=== PATIENT | male | born 1965 | race Caucasian/White ===

== ENCOUNTER 2016-12-25 12:22 | Inpatient (IN) | payer OTHER ==
[~2016-12-25] VITALS: Ht 167.6 cm; Wt 81.6 kg
[~2016-12-25 12:22] MED LIST: ASPIR 8181 MG PO; BREO ELLIPTA 11 EACH INH; CATAPRES 0.1MG0.1 MG PO; COREG 25MG TAB25 MG PO; LEVAQUIN500 MG PO; PLAVIX 75 MG TA75 MG PO; PREDNISONE 10 M10 MG PO; SPIRIVA18 MCG INH; ZESTRIL 40 MG T40 MG PO
[2016-12-25 13:44] LABS: HEMOGLOBIN 16.2 gm/dl (14.0-17.5); RED BLOOD COUNT 5.38 M/UL (4.20-5.50); WHITE BLOOD COUNT 9.3 K/UL (4.5-11.0)
[2016-12-25 13:52] LABS: BUN/CREATININE RATIO 11 (0-10)
[2016-12-25] MEDS ORDERED: TYLENOL 325MG325 MG PO (17:57)
[2016-12-25] MEDS ORDERED: NASAL SPRAY30 M2 (17:58)
[2016-12-25] MEDS ORDERED: IPRAT-ALBUT 0.5-3 ML INH (17:59)
[2016-12-25] MEDS ORDERED: NEURONTIN 300300 MG PO (18:00)
[2016-12-26 08:02] LABS: HEMOGLOBIN 16.4 gm/dl (14.0-17.5); RED BLOOD COUNT 5.17 M/UL (4.20-5.50); WHITE BLOOD COUNT 13.9 K/UL (4.5-11.0)
[2016-12-26 08:36] LABS: BUN/CREATININE RATIO 31 (0-10)
[2016-12-27 05:28] LABS: RED BLOOD COUNT 4.77 M/UL (4.20-5.50); WHITE BLOOD COUNT 14.7 K/UL (4.5-11.0)
[2016-12-27 05:32] LABS: HEMOGLOBIN 14.4 gm/dl (14.0-17.5)
[2016-12-27 05:52] LABS: BUN/CREATININE RATIO 34 (0-10)
[2016-12-27] MEDS ORDERED: LEVAQUIN500 MG PO (15:31)
[2016-12-27] MEDS ORDERED: OXYGEN INH (15:32)
[2016-12-27] MEDS ORDERED: HABITROL 7 MG PA1 EA TD (15:33)
[2016-12-27] MEDS ORDERED: MEDROL4 MG PO (15:35)
== END 2016-12-27 16:02 | disposition home or self-care (01) | DRG 189 ==
LOC: ER1 12:22 → PROG CARE 14:39 → ZEROF 14:39 → PROG CARE 19:39 → M/S 12-26 18:21
PROVIDERS: Emergency Medicine; ADMIT Family Medicine
PROC: 5A09357 Assistance with Respiratory Ventilation, Less than 24 Consecutive Hours, Continuous Positive Airway Pressure (ICD-10-PCS; principal; 2016-12-25)
DX: J96.22 Acute and chronic respiratory failure with hypercapnia (principal); J44.0 Chronic obstructive pulmonary disease with (acute) lower respiratory infection; J44.1 Chronic obstructive pulmonary disease with (acute) exacerbation; J20.9 Acute bronchitis, unspecified; J96.21 Acute and chronic respiratory failure with hypoxia; I10 Essential (primary) hypertension; G89.29 Other chronic pain; M54.5 Low back pain; F17.210 Nicotine dependence, cigarettes, uncomplicated; K21.9 Gastro-esophageal reflux disease without esophagitis; R74.0 Nonspecific elevation of levels of transaminase and lactic acid dehydrogenase [LDH]; J30.9 Allergic rhinitis, unspecified; G47.00 Insomnia, unspecified; Z86.73 Personal history of transient ischemic attack (TIA), and cerebral infarction without residual deficits; Z79.02 Long term (current) use of antithrombotics/antiplatelets; Z79.82 Long term (current) use of aspirin; Z79.1 Long term (current) use of non-steroidal anti-inflammatories (NSAID); Z99.81 Dependence on supplemental oxygen; Z79.51 Long term (current) use of inhaled steroids; Z79.52 Long term (current) use of systemic steroids; Z79.899 Other long term (current) drug therapy; Z88.5 Allergy status to narcotic agent; Z91.041 Radiographic dye allergy status; Z90.49 Acquired absence of other specified parts of digestive tract; Z98.890 Other specified postprocedural states; Z80.0 Family history of malignant neoplasm of digestive organs; Z82.49 Family history of ischemic heart disease and other diseases of the circulatory system
CPT/HCPCS: 36415; 36600; 71010; 71020; 80053; 80074; 80307; 81001; 82550; 82553; 82803; 83880; 84484; 85025; 87040; 87086; 93005; 94640; 94660; 96374; 96375; 99285; G0480; J0696; J1956; J2060; J2270; J2550; J2920; J2930

== ENCOUNTER 2017-01-09 20:18 | Emergency (ER) | payer OTHER ==
[~2017-01-09 20:18] MED LIST changes: +HABITROL 7 MG PA1 EA TD; +IPRAT-ALBUT 0.5-3 ML INH; +MEDROL4 MG PO; +NASAL SPRAY30 M2; +NEURONTIN 300300 MG PO; +OXYGEN INH; +TYLENOL 325MG325 MG PO
[2017-01-09 21:00] LABS: RED BLOOD COUNT 5.29 M/UL (4.20-5.50); WHITE BLOOD COUNT 16.4 K/UL (4.5-11.0)
[2017-01-09 21:21] LABS: BUN/CREATININE RATIO 38 (0-10)
== END 2017-01-10 01:00 | disposition home or self-care (01) ==
LOC: ER1 20:18
PROVIDERS: Family Medicine
DX: J44.1 Chronic obstructive pulmonary disease with (acute) exacerbation (principal); N18.9 Chronic kidney disease, unspecified; E86.0 Dehydration; D72.829 Elevated white blood cell count, unspecified; F17.200 Nicotine dependence, unspecified, uncomplicated; Z88.5 Allergy status to narcotic agent; Z79.02 Long term (current) use of antithrombotics/antiplatelets; Z99.81 Dependence on supplemental oxygen; Z79.899 Other long term (current) drug therapy
CPT/HCPCS: 36415; 71010; 80053; 82550; 82553; 83874; 83880; 84484; 85025; 93005; 96360; 96361; 99284